=== PATIENT | male | born 1990 | race African-American/Black ===

== ENCOUNTER 2023-11-12 16:13 | Emergency (ER) | payer MEDICAID, OTHER ==
[~2023-11-12] VITALS: Ht 182.9 cm; Wt 97.3 kg
[2023-11-12 19:01] VITALS: BP 156/97; PULSE 64; RESP 18; TEMP 98.5; O2SAT 97
[2023-11-12] MEDS ORDERED: ACET500T58 PO (20:04)
== END 2023-11-12 20:25 | disposition home or self-care (01) ==
LOC: ER 16:13
DX: S90.211A Contusion of right great toe with damage to nail, initial encounter (principal); W22.8XXA Striking against or struck by other objects, initial encounter; Y93.89 Activity, other specified; Y92.89 Other specified places as the place of occurrence of the external cause; Y99.8 Other external cause status
CPT/HCPCS: 73660